=== PATIENT | female | born 1935 | race Caucasian/White ===

== ENCOUNTER 2018-06-30 16:56 | Emergency (ER) | payer OTHER, BC ==
[~2018-06-30] VITALS: Ht 154.9 cm; Wt 49.1 kg
[~2018-06-30 16:56] MED LIST: BUPR-79 PO; CLOP1TAB15 PO; HLD.5 PO; ISM20 PO; LISI-461 PO; METO25TA56 PO; MRLP17 PO; MULT-506 PO; NVLGIPEN SC; SENN-61 PO; SIMV20TA2 PO; VENL75CA88 PO
[2018-06-30 17:23] VITALS: TEMP 36.4; Ht 154.9 cm; Wt 49.1 kg
[2018-06-30 18:29] LABS: BASO % 0.3 %; BASO ABS # 0.02 K/uL (0-0.2); EOS % 0.9 %; EOS ABS # 0.06 K/uL (0-0.5); HEMATOCRIT 31.7 % (37-47); HEMOGLOBIN 10.2 g/dL (12.0-16.0); IG# 0.02 K/uL (0.00-0.02); LYMPH % 12.5 %; LYMPH ABS # 0.87 K/uL (1.2-3.4); MEAN CELL VOLUME 91.4 fL (80-100); MEAN CORPUSCULAR HEMOGLOBIN 29.4 pg (25-34); MEAN CORPUSCULAR HGB CONC 32.2 g/dl (32-36); MEAN PLATELET VOLUME 10.3 fL (7.4-10.4); MONO % 7.3 %; MONO ABS # 0.51 K/uL (0.11-0.59); NEUT % 78.7 %; PLATELET COUNT 172 K/uL (130-400); RED CELL DISTRIBUTION WIDTH CV 14.8 % (11.5-14.5); WHITE BLOOD COUNT 6.98 K/uL (4.8-10.8)
[2018-06-30 18:49] LABS: CALCIUM 6.3 mg/dl (8.5-10.1); CREATININE 0.51 mg/dl (0.60-1.20); POTASSIUM 3.6 mmol/L (3.5-5.1)
--- NOTE | 2018-06-30 19:24 | DIAGNOSTIC IMAGING REPORT ---
CHEST ONE VIEW PORTABLE CLINICAL HISTORY: EVALUATE ALTERED MENTAL STATUS/WEAKNESS COMPARISON STUDY: Chest radiograph May 30, 2018. FINDINGS: Incidental note is made of median sternotomy wires and a right shoulder arthroplasty. Cardiomegaly is unchanged. There is no evidence for pulmonary edema. No pneumothorax or pleural effusion is noted. There are numerous old bilateral rib fractures. There is no consolidation. IMPRESSION: No acute cardiopulmonary findings. Electronically signed by: John Oviedo M.D. 06/30/2018 7:22 PM Dictated Date/Time: 06/30/2018 7:21 PM
[2018-06-30] MEDS ORDERED: CEFTRIAXONE SOD INJ 1 GM ADDVIAL IV STA (20:44)
--- NOTE | 2018-06-30 20:47 | EMERGENCY ROOM VISIT NOTE ---
History Report prepared by Tiffanie: Griselda Cervantes Under the Supervision of: Dr. Paxton Chu D.O. First contact with patient: 17:21 Chief Complaint: HYPOGLYCEMIA Stated Complaint: HYPOGLYCEMIA History of Present Illness The patient is an 82 year old female who presents to the Emergency Room with complaints of worsening hypoglycemia that started around lunchtime today. The patient's son notes that the patient was given an insulin shot at lunch, and that later in the afternoon, the halfway staff noted the patient's blood sugar was 29. The son states that the halfway staff ran out of insulin shots, so they tried to administer and IV, but the patient was unable to swallow it. He reports that the staff then tried giving the patient table sugar. He states that when the patient's sugar dropped, the patient started thrashing around and exhibited seizure like activity. He reports that the patient then went unresponsive. The son also reports that the patient developed a rash a few days ago and was subsequently given a cream and an antibiotic. The family engagement specialist notes that the antibiotic has decreased her appetite over the past few days few. 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 HPI limited due to patient's aphasia. Source of History: patient, family (son) History Limited By: aphasia Onset: lunchtime today Position: other (generalized) Quality: other (hypoglycemia) Timing: worsening Associated Symptoms: + urinary symptoms (infection), + rash Note: Additional symptoms: decreased appetite Review of Systems See HPI for pertinent positives & negatives. A total of 10 systems reviewed and were otherwise negative. Past Medical & Surgical Medical Problems: (1) Benign hypertension (2) Elevated troponin I level (3) heart disease (4) Metabolic encephalopathy (5) Myocardial infarction (6) Shortness of breath (7) UTI (urinary tract infection) Family History No pertinent family history Social History Smoking Status: Never Smoker Drug Use: none Marital Status: Housing Status: halfway Occupation Status: retired Current/Historical Medications Scheduled Bupropion (Wellbutrin Sr), 150 MG PO BID Clopidogrel (Plavix), 75 MG PO DAILY Insulin Aspart (Novolog Flexpen), 0 UNITS SC ACHS Isosorbide Mononitrate (Isosorbide Mononitrate), 10 MG PO BID@0900,1600 Lisinopril (Zestril), 10 MG PO QPM Metoprolol Tartrate (Lopressor) (Lopressor), 25 MG PO BID Multivitamin (Multivitamin), 1 TABLET PO DAILY Simvastatin (Zocor), 20 MG PO HS Venlafaxine Hcl (Effexor Xr), 75 MG PO DAILY Scheduled PRN Haloperidol (Haloperidol), 0.5 MG PO HS PRN for Anxiety/Agitation Polyethylene (Miralax), 17 GM PO DAILY PRN for Constipation Senna (Senokot), 8.6 MG PO QAM PRN for Constipation Allergies Coded Allergies: No Known Allergies (Verified , 05/29/18) Physical Exam Vital Signs Date Time Temp Pulse Resp B/P (MAP) Pulse Ox O2 Delivery O2 Flow Rate FiO2 06/30/18 19:33 88 16 160/88 100 Room Air 06/30/18 17:23 36.4 79 19 190/94 99 Room Air 06/30/18 17:20 78 Physical Exam CONSTITUTIONAL/VITAL SIGNS: Reviewed / noted above. GENERAL: Non-toxic in appearance. General weakness. INTEGUMENTARY: Warm, dry, and [place]. HEAD: Normocephalic. EYES: without scleral icterus or trauma. ENT/OROPHARYNX: clear and moist. Some excoriation to the buttock area. LYMPHADENOPATHY/NECK: Is supple without lymphadenopathy or meningismus. RESPIRATORY: Lungs clear and equal. CARDIOVASCULAR: Regular rate and rhythm. GI/ABDOMEN: Soft and nontender. No organomegaly or pulsatile mass. No rebound or guarding. Normal bowel sounds. EXTREMITIES: Warm and well perfused. BACK: No CVA tenderness. NEUROLOGICAL: Intact without focal deficits. PSYCHIATRIC: normal affect. MUSCULOSKELETAL: Normally developed with good muscle tone. Medical Decision & Procedures ER Provider Diagnostic Interpretation: Radiology results as stated below per my review and radiologist interpretation: CHEST ONE VIEW PORTABLE CLINICAL HISTORY: EVALUATE ALTERED MENTAL STATUS/WEAKNESS COMPARISON STUDY: Chest radiograph May 30, 2018. FINDINGS: Incidental note is made of median sternotomy wires and a right shoulder arthroplasty. Cardiomegaly is unchanged. There is no evidence for pulmonary edema. No pneumothorax or pleural effusion is noted. There are numerous old bilateral rib fractures. There is no consolidation. IMPRESSION: No acute cardiopulmonary findings. Electronically signed by: John Oviedo M.D. 06/30/2018 7:22 PM Dictated Date/Time: 06/30/2018 7:21 PM Laboratory Results 06/30/18 18:10 Red Blood Count 3.47, Mean Corpuscular Volume 91.4, Mean Corpuscular Hemoglobin 29.4, Mean Corpuscular Hemoglobin Concent 32.2, Mean Platelet Volume 10.3, Neutrophils (%) (Auto) 78.7, Lymphocytes (%) (Auto) 12.5, Monocytes (%) (Auto) 7.3, Eosinophils (%) (Auto) 0.9, Basophils (%) (Auto) 0.3, Neutrophils # (Auto) 5.50, Lymphocytes # (Auto) 0.87, Monocytes # (Auto) 0.51, Eosinophils # (Auto) 0.06, Basophils # (Auto) 0.02 06/30/18 18:10 Test 06/30/18 18:08 06/30/18 18:10 06/30/18 19:38 Urine Color YELLOW Urine Appearance TURBID (CLEAR) Urine pH 7.5 (4.5-7.5) Urine Specific [place] 1.013 (1.000-1.030) Urine Protein 2+ (NEG) Urine Glucose (UA) 2+ (NEG) Urine Ketones NEG (NEG) Urine Occult Blood 2+ (NEG) Urine Nitrite NEG (NEG) Urine Bilirubin NEG (NEG) Urine Urobilinogen NEG (NEG) Urine Leukocyte Esterase LARGE (NEG) Urine WBC (Auto) >30 /hpf (0-5) Urine RBC (Auto) 10-30 /hpf (0-4) Urine Hyaline Casts (Auto) 10-30 /lpf (0-5) Urine Epithelial Cells (Auto) 10-20 /lpf (0-5) Urine Bacteria (Auto) NEG (NEG) Urine Pathogenic Casts /lpf (0) Urine Yeast (Auto) (NONE PRSENT) White Blood Count 6.98 K/uL (4.8-10.8) Red Blood Count 3.47 M/uL (4.2-5.4) Hemoglobin 10.2 g/dL (12.0-16.0) Hematocrit 31.7 % (37-47) Mean Corpuscular Volume 91.4 fL (80-100) Mean Corpuscular Hemoglobin 29.4 pg (25-34) Mean Corpuscular Hemoglobin Concent 32.2 g/dl (32-36) Platelet Count 172 K/uL (130-400) Mean Platelet Volume 10.3 fL (7.4-10.4) Neutrophils (%) (Auto) 78.7 % Lymphocytes (%) (Auto) 12.5 % Monocytes (%) (Auto) 7.3 % Eosinophils (%) (Auto) 0.9 % Basophils (%) (Auto) 0.3 % Neutrophils # (Auto) 5.50 K/uL (1.4-6.5) Lymphocytes # (Auto) 0.87 K/uL (1.2-3.4) Monocytes # (Auto) 0.51 K/uL (0.11-0.59) Eosinophils # (Auto) 0.06 K/uL (0-0.5) Basophils # (Auto) 0.02 K/uL (0-0.2) RDW Standard Deviation 49.0 fL (36.4-46.3) RDW Coefficient of Variation 14.8 % (11.5-14.5) Immature Granulocyte % (Auto) 0.3 % Immature Granulocyte # (Auto) 0.02 K/uL (0.00-0.02) Anion Gap 6.0 mmol/L (3-11) Est Creatinine Clear Calc Drug Dose 64.1 ml/min Estimated GFR () 103.8 Estimated GFR (Non- 89.5 BUN/Creatinine Ratio 26.5 (10-20) Calcium Level 6.3 mg/dl (8.5-10.1) Bedside Glucose 115 mg/dl (70-90) Laboratory results as stated above per my review. Medications Administered Medications (Trade) Dose Ordered Sig/[place]ijay Route Start Time Stop Time Status Last Admin Dose Admin Ceftriaxone Sodium (Rocephin Inj) 1 gm NOW STAT IV 06/30/18 20:44 06/30/18 20:46 DC 06/30/18 20:51 1 GM ED Course 172: Previous medical records were reviewed. The patient was evaluated in room B02. A complete history and physical examination was performed. 2043: Administered Rocephin Inj 1 gm IV. 2049: On reevaluation, the patient is resting. I discussed the results and findings with the patient. She and her son verbalized agreement of the treatment plan. The patient was discharged home. Medical Decision Differential includes acute coronary syndrome, myocardial infarction, CVA, TIA, anemia, infection, pneumonia, UTI, pyelonephritis, poor nutrition, dehydration, electrolyte disturbance,hypoglycemia. This is an 82-year-old female who presents to the ED with a chief complaint of low blood sugar. The patient is an insulin dependent diabetic. She gets insulin at lunch. Her blood sugar is 192 at lunch. This afternoon, staff found her to be clammy with decreased mental status. EMS was summoned and her blood sugar was 29. EMS provided IV glucose. The patient was brought in for evaluation. The son reports that she did not eat well at lunchtime. The patient is a poor historian and provides no additional information. She has no complaints. Physical exam did not reveal anything unusual. She is hard of hearing but does respond to some questions. Son is present and she is more or less at baseline. CBC today reveals mild anemia with a hemoglobin of 10.2. PRP was unremarkable. Glucose is 165. Glucose has remained above 100. Urinalysis appears to be slightly contaminated and was without bacteria. There may be an infection. Culture has been sent. She was given a dose of IV Rocephin here. The patient is felt to be stable for discharge and outpatient follow-up. Medication Reconcilliation Current Medication List: was personally reviewed by me Blood Pressure Screening Patient's blood pressure: Elevated blood pressure Blood pressure disposition: Referred to PCP Impression Primary Impression: Hypoglycemia Scribe Attestation The scribe's documentation has been prepared under my direction and personally reviewed by me in its entirety. I confirm that the note above accurately reflects all work, treatment, procedures, and medical decision making performed by me. Departure Information Dispostion Home / Self-Care Referrals Cindy Erickson M.D. (PCP) Forms HOME CARE DOCUMENTATION FORM, IMPORTANT VISIT INFORMATION, WORK / SCHOOL INSTRUCTIONS Patient Instructions My [facility] Additional Instructions Avoid excessive insulin administration if the patient's blood sugar is low or if the patient is not eating well. Follow-up with your doctor for further care and evaluation in 1-2 days. Return to the emergency department for worsening or new symptoms or any concerns. You have been examined and treated today on an emergency basis only. This is not a substitute for, or an effort to provide, complete comprehensive medical care. It is impossible to recognize and treat all injuries or illnesses in a single emergency department visit. It is therefore important that you follow up closely with your doctor. Call as soon as possible for an appointment.
[2018-06-30 21:30] VITALS: BP 137/64; PULSE 87; O2SAT 98
--- NOTE | 2018-07-03 14:08 | Pharmacy Progress Note ---
ED Pharmacist Culture FollowUp Date of Service: Jul 03, 2018. Urine cx (cath specimen) is growing ps aeruginosa 30,000CFU/mL. Pt does not have indwelling cath. Pt was seen in ER for hypoglycemia following insulin administration w/ lunch and poor PO intake. BSG had dropped to 29. She was treated by EMS with IV dextrose and brought to ER for evaluation. UA showed large LE and > 30 WBC but no bacteria and 10-20epis. There is a possibility of contamination. Pt had a negative ABD exam and was afebrile w/o leukocytosis on CBC. Uncertain if this is colonization vs contamination vs infection. Contacted Ciara Caballero. RN supervisor agency appointments asked I fax over the cx results and the on site PAC will review and determine if tx indicated. Results faxed to w/ confirmation success.
== END 2018-06-30 21:31 | disposition home or self-care (01) ==
LOC: EDBD 16:56 → C.EDB 16:57
DX: E11.649 Type 2 diabetes mellitus with hypoglycemia without coma (principal); I11.9 Hypertensive heart disease without heart failure; I25.2 Old myocardial infarction; G93.41 Metabolic encephalopathy; Z79.02 Long term (current) use of antithrombotics/antiplatelets; Z79.4 Long term (current) use of insulin; Z79.899 Other long term (current) drug therapy